=== PATIENT | male | born 1995 | race Caucasian/White ===

== ENCOUNTER 2020-05-07 15:54 | Emergency (ER) | payer OTHER ==
[2020-05-07 16:01] VITALS: BP 136/83
--- NOTE | 2020-05-07 17:12 | ER Document Report ---
ED Medical Screen (RME) - General Chief Complaint: Eye Pain Stated Complaint: EYE PAIN Time Seen by Provider: 05/07/20 17:03 Primary Care Provider: JOHN WILLOUGHBY MD [ACTIVE STAFF] - Follow up as needed Mode of Arrival: Ambulatory Information source: Patient Notes: 24-year-old male presented to ED for complaint of 5 painful eyes to both eyes since yesterday. He states at 4 AM he woke up and they were extremely painful he did put drops in them and that did not relieve the pain. He states he has had this in the past he reports of drops in his eyes that he felt much better at this time the pain is not going away. He does not remember any injury or anything like that. He states he did take some allergy medicine last night that did not help the pain either. We will treat him with erythromycin ointment at this time and have him follow-up with ophthalmology tomorrow. He states he is [facility] and he will have to get it cleared with his [facility]. REVIEW OF SYSTEMS: CONSTITUTIONAL : Denies fever, chills, or sweats. Denies recent illness. EENT: Eye dryness and pain bilaterally with swelling to the upper and lower eyelid no injury, ear, throat, or mouth pain or symptoms. Denies nasal or sinus congestion. CARDIOVASCULAR: Denies chest pain. RESPIRATORY: Denies cough, cold, or chest congestion. Denies shortness of breath, difficulty breathing, or wheezing. GASTROINTESTINAL: Denies abdominal pain. Denies nausea, vomiting, or diarrhea. Denies constipation. Last BM: GENITOURINARY: Denies difficulty urinating, painful urination, burning, fr equency, or blood in urine. FEMALE GENITOURINARY: Denies vaginal bleeding, abnormal or irregular periods. LMP: MUSCULOSKELETAL: Denies neck or back pain or joint pain or swelling. SKIN: Denies rash or skin lesions. HEMATOLOGIC : Denies easy bruising or bleeding. LYMPHATIC: Denies swollen, enlarged glands. NEUROLOGICAL: Denies altered mental status or loss of consciousness. Denies headache. Denies weakness or paralysis or loss of use of either side. Denies problems with gait or speech. Denies sensory or motor loss. PSYCHIATRIC: Denies anxiety or stress or depression. ALL OTHER SYSTEMS REVIEWED AND NEGATIVE. VITAL SIGNS: Within normal limits. GENERAL: No acute distress, non-toxic appearance. HEAD: Normal with no signs of head trauma. EYES: PERRLA, EOMI, conjunctiva normal, no discharge. Upper and lower eyelid swelling no matting no drainage no conjunctival redness EARS: Hearing grossly intact. NOSE: Normal. THROAT: Oropharynx is normal. NECK: Normal range of motion, no tenderness, supple, no lymphadenopathy, No adenopathy, no JVD. CHEST: Clear breath sounds bilaterally. No wheezes, rales, or rhonchi. CARDIAC: Regular rate and rhythm. S1 and S2, without murmurs, gallops, or rubs. VASCULAR: No Edema. Peripheral pulses normal and equal in all extremities. ABDOMEN: Normal and soft with no tenderness, no masses or pulsatile masses. GASTROINTESTINAL: Bowel sounds normal GENITOURINARY: Normal, No tenderness LYMPATHTIC: No lymphadenopathy noted. MUSCULOSKELETAL: Good range of motion of all major joints. Extremities without clubbing, cyanosis or edema. NEUROLOGICAL: Alert and oriented x 3. No focal sensory or strength deficits. Speech normal. Follows commands appropriately. PSYCHIATRIC: Normal Affect, judgement and mood. SKIN: Normal appearance with no rashes or lesions. - HPI Onset: Yesterday Onset/Duration: Gradual Quality of pain: Burning, Other Severity: Moderate Pain Level: 3 Associated Symptoms: Other - Dry burning eyes with swelling eyelids Exacerbated by: Denies Relieved by: Denies Similar symptoms previously: Yes Recently seen / treated by doctor: No - Related Data Smoking: Non-smoker Frequency of alcohol use: None Drug Abuse: None Allergies/Adverse Reactions: No Known Allergies Allergy (Verified 05/07/20 17:02) Past Medical History - General Information source: Patient - Social History Cigarette use (# per day): No Chew tobacco use (# tins/day): No Frequency of alcohol use: Occasional Drug Abuse: None Lives with: Family Family history: Reviewed & Not Pertinent - Past Medical History Cardiac Medical History: Reports: None Pulmonary Medical History: Reports: None EENT Medical History: Reports: None Neurological Medical History: Reports: None Endocrine Medical History: Reports: None Renal/ Medical History: Reports: None Malignancy Medical History: Reports None GI Medical History: Reports: None Musculoskeltal Medical History: Reports Hx Musculoskeletal Deformity, Reports Hx Musculoskeletal Trauma Skin Medical History: Reports None Traumatic Medical History: Reports: None Infectious Medical History: Reports: None Past Surgical History: Reports: Hx Orthopedic Surgery - Right knee meniscus x2 Physical Exam - Vital signs Vitals: Temp Pulse Resp BP Pulse Ox 99.0 F 64 20 136/83 H 100 05/07/20 15:59 05/07/20 15:59 05/07/20 15:59 05/07/20 15:59 05/07/20 15:59 Course - Re-evaluation Re-evalutation: 05/07/20 17:19 Patient was treated with erythromycin ointment in the emergency room and discharged home with a prescription for erythromycin and he has been 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 I have given him the name and number of Dr. Willoughby to follow - Vital Signs Vital signs: Temp Pulse Resp BP Pulse Ox 99.0 F 64 20 136/83 H 100 05/07/20 17:04 05/07/20 15:59 05/07/20 15:59 05/07/20 15:59 05/07/20 15:59 Doctor's Discharge - Discharge Clinical Impression: Pain of both eyes Swelling of eyelid Qualifiers: Laterality: unspecified laterality Qualified Code(s): H02.849 - Edema of unspecified eye, unspecified eyelid Disposition: HOME, SELF-CARE Additional Instructions: You were seen today for eye pain to both eyes. There does not appear to be any conjunctivitis and you stated that you have not injured your eyes they just feel dry and painful. You do have swelling to both eyelids. Erythromycin You have been prescribed an antibiotic of the erythromycin class. These antibiotics are used for many infections, especially in penicillin-allergic patients. They're particularly useful for infections of the respiratory system. The medication will be most effective if taken before or at least two hours after meals. However, many persons will have nausea or stomach cramping with erythromycin. If this occurs, try taking the medicine with food. If the side effects are still intolerable, contact your doctor. You should not take erythromycin with non-sedating antihistamines such as Seldane or Hismanal. Call the doctor at once if you develop rash, itching, shortness of breath, or lightheadedness. Ice Packs Apply ice packs frequently against the painful area. Many different schedules are recommended, such as "20 minutes on, 20 minutes off" or "one hour ice, two hours rest." If you need to work, you may need to go longer between ice treatments. You should plan to have the area ice packed AT LEAST one fourth of the time. The ice should be applied over the wrap, tape, or splint, or over a layer of cloth -- not directly against the skin. Some ice bags have a built-in cloth and can be put directly on the skin. FOLLOW-UP CARE: If you have been referred to a physician for follow-up care, call the physicians office for an appointment as you were instructed or within the next two days. If you experience worsening or a significant change in your symptoms, notify the physician immediately or return to the Emergency Department at any time for re-evaluation. Prescriptions: Erythromycin Base [E-Mycin 0.5% Oph Ointment 3.5 gm] 1 applic OU QID #2 tube Forms: Elevated Blood Pressure, Return to Work Referrals: JOHN WILLOUGHBY MD [ACTIVE STAFF] - Follow up as needed
[2020-05-07] MEDS ORDERED: ERYTHROMYCIN 0.5% OPH OINT 1 GM UNIT DOSE OU ONE (17:14)
== END 2020-05-07 17:27 | disposition home or self-care (01) ==
LOC: ER 15:54
DX: H02.849 Edema of unspecified eye, unspecified eyelid (principal); H57.13 Ocular pain, bilateral
CPT/HCPCS: 99283